=== PATIENT | male | born 1985 | race Caucasian/White ===

== ENCOUNTER 2017-02-25 02:28 | Emergency (ER) | payer OTHER ==
--- NOTE | 2017-02-25 02:54 | PDOC ---
History of Present Illness - General History Source: Patient <Nate Rivas - Last Filed: 02/25/17 03:00> - General History Source: Patient Exam Limitations: No Limitations - History of Present Illness Initial Comments: 02/25/17 04:07 The patient is a 31 year old [employer] male with no significant past medical history who presents to the ED with traumatic left shoulder pain prior to arrival. Patient reports around 10:30pm, as he was walking down a flight of stairs, he tripped and caught himself by reaching out with his left arm and grabbing the railing. He reports stretching sensation in his left shoulder. No numbness/ tingling. No radiation. 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 Patient reports some loss of shoulder strength. The patient denies fever, chills, cough, SOB, chest pain, and palpitations. The patient denies abdominal pain, nausea, vomiting, and diarrhea. <Yudith Castellano - Last Filed: 02/25/17 04:08> - General Chief Complaint: Pain Stated Complaint: SHOULDER PAIN Time Seen by Provider: 02/25/17 02:53 Past History - Immunization History Immunization Up to Date: Yes - Psycho/Social/Smoking Cessation Hx Suicidal Ideation: No Smoking History: Never smoked Have you smoked in the past 12 months: No Information on smoking cessation initiated: No Hx Alcohol Use: No Drug/Substance Use Hx: No Substance Use Type: None <Nate Rivas - Last Filed: 02/25/17 03:00> <Yudith Castellano - Last Filed: 02/25/17 04:08> - Past Medical History Allergies/Adverse Reactions: Allergies Allergy/AdvReac Type Severity Reaction Status Date / Time No Known Allergies Allergy Verified 02/25/17 02:50 Home Medications: Ambulatory Orders NK [No Known Home Medication] 02/25/17 Review of Systems - Review of Systems Able to Perform ROS?: Yes Comments:: 02/25/17 04:07 CONSTITUTIONAL: Absent: fever, no chills, no fatigue EYES: Absent: visual changes ENT: Absent: ear pain, no sore throat CARDIOVASCULAR: Absent: chest pain, no palpitations RESPIRATORY: Absent: cough, no SOB GI: Absent: abdominal pain, no nausea, no vomiting, no constipation, no diarrhea GENITOURINARY: Absent: dysuria, no frequency, no hematuria MUSCULOSKELETAL: +L shoulder pain Absent: back pain, no myalgia SKIN: Absent: rash NEURO: Absent: headache <AngelijaironYudith - Last Filed: 02/25/17 04:08> *Physical Exam - Vital Signs Last Vital Signs Temp Pulse Resp BP Pulse Ox 98.2 F 80 20 116/67 100 02/25/17 02:45 02/25/17 02:45 02/25/17 02:45 02/25/17 02:45 02/25/17 02:45 <Nate Rivas - Last Filed: 02/25/17 03:00> - Vital Signs Last Vital Signs Temp Pulse Resp BP Pulse Ox 98.2 F 80 20 116/67 100 02/25/17 02:45 02/25/17 02:45 02/25/17 02:45 02/25/17 02:45 02/25/17 02:45 - Physical Exam Comments: 02/25/17 04:07 GENERAL: Well-appearing, well-nourished. No apparent distress. HEENT: Normocephalic, atraumatic. PERRL, EOM intact. CARDIOVASCULAR: Normal S1, S2. Regular rate and rhythm. PULMONARY: Clear to auscultation bilaterally. ABDOMEN: Soft, non-distended, non-tender. EXTREMITIES: Normal ROM in all four extremities. No gross deformities. Shoulder abduction to 95 degrees. +claire. +empty can. Gross hand motion intact. No loss in sensations. Radial pulse 2/4. SKIN: Warm, dry. No rash NEUROLOGICAL: No focal neurological deficits. <Yudith Castellano - Last Filed: 02/25/17 04:08> ED Treatment Course - Medications Given in the ED: ED Medications Discontinued Medications Generic Name Dose Route Start Last Admin Trade Name Freq PRN Reason Stop Dose Admin Ibuprofen 800 mg 02/25/17 03:00 02/25/17 03:10 Motrin - PO 02/25/17 03:01 800 mg ONCE ONE Administration <AngelijaironYudith - Last Filed: 02/25/17 04:08> Medical Decision Making - Medical Decision Making 02/25/17 03:04 Dr. Rivas: The scribe's documentation has been prepared under my direction and personally reviewed by me in its entirery. I confirm that the note above accurately reflects all work, treatment, procedures, and medical decision making performed by me. <Nate Rivas - Last Filed: 02/25/17 03:00> *DC/Admit/Observation/Transfer - Discharge Dispostion Admit: No <Nate Rivas - Last Filed: 02/25/17 03:00> - Attestations Scribe Attestion: 02/25/17 04:08 Documentation prepared by Yudith Castellano, acting as medical unit secretary for Nate Rivas MD <Yudith Castellano - Last Filed: 02/25/17 04:08> Diagnosis at time of Disposition: Sprain of left shoulder Qualifiers: Encounter type: initial encounter Shoulder sprain type: unspecified sprain Qualified Code(s): S43.402A - Unspecified sprain of left shoulder joint, initial encounter - Discharge Dispostion Disposition: HOME Condition at time of disposition: Stable - Referrals Referrals: Osiel Thapa MD [Primary Care Provider] - Tristin Hardy MD [Staff Physician] - Ruben Dawson MD [Staff Physician] - - Patient Instructions Printed Discharge Instructions: DI for Shoulder Sprain
[2017-02-25] MEDS ORDERED: IBUPROFEN 400 MG TABLET (FP) PO ONE ×2 (03:00→03:09)
[2017-02-25 03:06] VITALS: BP 116/67; PULSE 80; TEMP 98.2; BMI 27.3
== END 2017-02-25 03:10 | disposition home or self-care (01) ==
LOC: JER 02:28
DX: S43.402A Unspecified sprain of left shoulder joint, initial encounter (principal); W10.8XXA Fall (on) (from) other stairs and steps, initial encounter; Y93.89 Activity, other specified; Y92.29 Other specified public building as the place of occurrence of the external cause; Y99.0 Civilian activity done for income or pay
CPT/HCPCS: 99282-25

== ENCOUNTER 2018-08-03 01:52 | Emergency (ER) | payer OTHER ==
[2018-08-03 02:02] VITALS: BP 126/80; PULSE 77; TEMP 98.2; BMI 27.3
--- NOTE | 2018-08-03 02:18 | PDOC ---
History of Present Illness - General Chief Complaint: Pain, Acute Stated Complaint: R KNEE INJURY/[employer] Time Seen by Provider: 08/03/18 02:03 History Source: Patient - History of Present Illness Initial Comments: 08/03/18 02:06 32 year [employer] male c/o right knee pain s/p missed step pain and swelling to right lateral knee. able to weightbear with difficulty. no pmhx Past History - Past Medical History Allergies/Adverse Reactions: Allergies Allergy/AdvReac Type Severity Reaction Status Date / Time No Known Allergies Allergy Verified 08/03/18 02:00 Home Medications: Ambulatory Orders NK [No Known Home Medication] 02/25/17 COPD: No - Immunization History Immunization Up to Date: Yes - Suicide/Smoking/Psychosocial Hx Smoking History: Never smoked Have you smoked in the past 12 months: No Information on smoking cessation initiated: No Hx Alcohol Use: No Drug/Substance Use Hx: No Substance Use Type: None Review of Systems - Review of Systems Able to Perform ROS?: Yes Is the patient limited German proficient: No Musculoskeletal: Yes: Other (knee pain) *Physical Exam - Vital Signs Last Vital Signs Temp Pulse Resp BP Pulse Ox 98.2 F 77 20 126/80 98 08/03/18 02:00 08/03/18 02:00 08/03/18 02:00 08/03/18 02:00 08/03/18 02:00 - Physical Exam General Appearance: Yes: Appropriately Dressed Extremity: positive: Normal Capillary Refill, Other (able to leg raise lateral knee tenderness and swelling. ) Integumentary: positive: Normal Color, Dry, Warm Neurologic: positive: Fully Oriented, Alert, Normal Mood/Affect Progress Note - Progress Note Progress Note: A: knee pain P: xray *DC/Admit/Observation/Transfer - Referrals Referrals: Osiel Thapa MD [Primary Care Provider] - - Patient Instructions - Post Discharge Activity
--- NOTE | 2018-08-03 02:20 | PDOC ---
History of Present Illness - General Chief Complaint: Pain, Acute Stated Complaint: R KNEE INJURY/[employer] Time Seen by Provider: 08/03/18 02:03 History Source: Patient Exam Limitations: No Limitations - History of Present Illness Initial Comments: 08/03/18 02:15 Patient is a 32M with no significant medical history here today complaining of knee pain that started today. Patient states that he was going down the stairs when he twisted his knee. Patient states that he was able to walk, but was leaning more on his other leg. Denies fevers, chills, nausea, vomiting. Denies other trauma. Denies feeling of joint instability. Past History - Past Medical History Allergies/Adverse Reactions: Allergies Allergy/AdvReac Type Severity Reaction Status Date / Time No Known Allergies Allergy Verified 08/03/18 02:00 Home Medications: Ambulatory Orders NK [No Known Home Medication] 02/25/17 COPD: No - Immunization History Immunization Up to Date: Yes - Suicide/Smoking/Psychosocial Hx Smoking History: Never smoked Have you smoked in the past 12 months: No Information on smoking cessation initiated: No Hx Alcohol Use: No Drug/Substance Use Hx: No Substance Use Type: None Review of Systems - Review of Systems Comments:: 08/03/18 02:17 GENERAL/CONSTITUTIONAL: No fever or chills. No weakness. HEAD, EYES, EARS, NOSE AND THROAT: No change in vision. No sore throat. CARDIOVASCULAR: No chest pain or shortness of breath RESPIRATORY: No cough, wheezing, or hemoptysis. GASTROINTESTINAL: No nausea, vomiting, diarrhea or constipation. MUSCULOSKELETAL: +right knee pain, No neck or back pain. SKIN: No rash NEUROLOGIC: No headache, vertigo, loss of consciousness, or change in strength/ sensation. ALLERGIC/IMMUNOLOGIC: No hives or skin allergy. *Physical Exam - Vital Signs Last Vital Signs Temp Pulse Resp BP Pulse Ox 98.2 F 77 20 126/80 98 08/03/18 02:00 08/03/18 02:00 08/03/18 02:00 08/03/18 02:00 08/03/18 02:00 - Physical Exam Comments: 08/03/18 02:17 GENERAL: Awake, alert, and fully oriented, in no acute distress R KNEE: tender along medial aspect of joint, stable to drawer test, +delores sign HEAD: No signs of trauma, normocephalic, atraumatic EYES: PERRLA, EOMI, sclera anicteric, conjunctiva clear ENT: Auricles normal inspection, hearing grossly normal, nares patent, oropharynx clear without exudates. Moist mucosa NECK: Normal ROM, supple, no lymphadenopathy, JVD, or masses LUNGS: No distress, speaks full sentences, clear to auscultation bilaterally HEART: Regular rate and rhythm, normal S1 and S2, no murmurs, rubs or gallops, peripheral pulses normal and equal bilaterally. ABDOMEN: Soft, nontender, normoactive bowel sounds. No guarding, no rebound. No masses NEUROLOGICAL: Cranial nerves II through XII grossly intact. Normal speech, normal gait, no focal sensorimotor deficits SKIN: Warm, Dry, normal turgor, no rashes or lesions noted. Medical Decision Making - Medical Decision Making 08/03/18 02:20 Patient is a 32M here today with knee pain. Stable joint, no suspicion of fracture. Will give brace, d/c home with ortho follow up. *DC/Admit/Observation/Transfer Diagnosis at time of Disposition: Knee pain - Discharge Dispostion Disposition: HOME Condition at time of disposition: Good Decision to Admit order: No - Referrals Referrals: Osiel Thapa MD [Primary Care Provider] - Jr Naidu MD [Staff Physician] - - Patient Instructions Printed Discharge Instructions: DI for Knee Pain Additional Instructions: Please follow up with orthopedic surgeon. The number is in your paperwork below. - Post Discharge Activity Forms/Work/School Notes: Back to Work
--- NOTE | 2018-08-03 02:22 | PDOC ---
Attending Attestation - HPI HPI: 08/03/18 02:26 The patient is a 33 year old male, with no significant past medical history, who presents to the emergency department with, right knee pain. As per patient , he was walking down stairs when he twisted his knee. He reports ambulating s/ p injury with minimal impairments. He reports putting more weight on the left knee. He denies any recent fevers, chills, headache or dizziness. He denies any recent nausea, vomit, diarrhea or constipation. He denies any recent chest pain or shortness of breath. He denies any recent dysuria, frequency, urgency or hematuria. Allergies: NKA Primary Care Physician: Dr. Thapa - Physicial Exam PE: 08/03/18 02:26 Refer to resident exam. <Madhavi Li - Last Filed: 08/03/18 02:26> - Resident Resident Name: Jorge Reagan - ED Attending Attestation I have performed the following: I have examined & evaluated the patient, The case was reviewed & discussed with the resident, I agree w/resident's findings & plan, Exceptions are as noted - Medical Decision Making Knee pain while walking downstairs. No evidence of fracture, dislocation. pt reports a feeling of instability that make me concerned about ligamentous injury X-ray not indicated. Will discharged home. Patient follow with Ortho/primary care physician Return to the ER for any other concerns or complaints <Rachael Deleon - Last Filed: 08/04/18 00:49> Attestations - Attestations 08/03/18 02:26 Documentation prepared by Madhavi Li, acting as biomedical equipment tech for Rachael Deleon MD. <Madhavi Li - Last Filed: 08/03/18 02:26>
[2018-08-03] MEDS ORDERED: IBUPROFEN 600 MG TABLET (FP) PO ONE ×2 (02:29→02:30)
== END 2018-08-03 02:31 | disposition home or self-care (01) ==
LOC: JER 01:52
DX: M25.561 Pain in right knee (principal); X58.XXXA Exposure to other specified factors, initial encounter; Y93.89 Activity, other specified; Y92.89 Other specified places as the place of occurrence of the external cause; Y99.0 Civilian activity done for income or pay
CPT/HCPCS: 99282-25

== ENCOUNTER 2019-05-22 23:54 | Emergency (ER) | payer OTHER ==
[2019-05-23 00:16] VITALS: BP 120/62; TEMP 98.3; BMI 26.6
--- NOTE | 2019-05-23 00:59 | PDOC ---
History of Present Illness - General Chief Complaint: Injury Stated Complaint: INJURY-[employer] Time Seen by Provider: 05/23/19 00:52 History Source: Patient - History of Present Illness Initial Comments: 05/23/19 00:54 33-year-old [employer] male complaining of left calf pain after tripping and missing a step while walking while at work. Pain is worse with movement. Patient reports that similar calf injury/strain in the past required physical therapy patient is noted to have slight left calf swelling. Positive pedal pulse no swelling to lower extremity. No past medical history Past History - Past Medical History Allergies/Adverse Reactions: Allergies Allergy/AdvReac Type Severity Reaction Status Date / Time No Known Allergies Allergy Verified 05/23/19 00:16 Home Medications: Ambulatory Orders NK [No Known Home Medication] 02/25/17 COPD: No - Immunization History Immunization Up to Date: Yes - Suicide/Smoking/Psychosocial Hx Smoking History: Unknown if ever smoked Have you smoked in the past 12 months: No Hx Alcohol Use: No Drug/Substance Use Hx: No Substance Use Type: None Review of Systems - Review of Systems Able to Perform ROS?: Yes Is the patient limited Nepalese proficient: No HEENTM: No: Symptoms Reported, See HPI, Eye Pain, Blurred Vision, Tearing, Recent change in vision, Double Vision, Cataracts, Ear Pain, Ocular Prothesis, Ear Discharge, Nose Pain, Nose Congestion, Tinnitus, Nose Bleeding, Hearing Loss , Throat Pain, Throat Swelling, Mouth Pain, Dental Problems, Difficulty Swallowing, Mouth Swelling, Other Respiratory: No: Symptoms reported, See HPI, Cough, Orthopnea, Shortness of Breath, SOB with Exertion, SOB at Rest, Stridor, Wheezing, Productive cough, Hemoptysis, Other *Physical Exam - Vital Signs Last Vital Signs Temp Pulse Resp BP Pulse Ox 98.3 F 90 H 120/62 96 05/23/19 00:12 05/23/19 00:12 05/23/19 00:12 05/23/19 00:12 - Physical Exam General Appearance: Yes: Appropriately Dressed Respiratory/Chest: positive: Lungs Clear, Normal Breath Sounds Extremity: positive: Normal Capillary Refill, Normal Inspection, Normal Range of Motion, Other (left calf swelling and tenderness. no pedal edema. Positive pedal pulse) Integumentary: positive: Normal Color, Dry, Warm Neurologic: positive: Fully Oriented, Alert, Normal Mood/Affect Medical Decision Making - Medical Decision Making 05/23/19 00:57 A: calf strain P: compression applied advised to elevated and rest/ outpatient PM&R follow up as previous injury *DC/Admit/Observation/Transfer Diagnosis at time of Disposition: Strain of calf muscle Qualifiers: Encounter type: initial encounter Laterality: left Qualified Code(s): S86.812A - Strain of other muscle(s) and tendon(s) at lower leg level, left leg, initial encounter - Discharge Dispostion Disposition: HOME - Referrals Referrals: Osiel Thapa MD [Primary Care Provider] - - Patient Instructions Additional Instructions: Elevate extremity. Continue the compression to the calf Follow-up with your doctor as soon as possible or occupational health as soon as possible Return to the emergency room for any worsening symptoms. - Post Discharge Activity Forms/Work/School Notes: Back to Work
[2019-05-23 04:59] VITALS: PULSE 90
== END 2019-05-23 01:13 | disposition home or self-care (01) ==
LOC: JER 23:54
DX: S86.112A Strain of other muscle(s) and tendon(s) of posterior muscle group at lower leg level, left leg, initial encounter (principal); W10.8XXA Fall (on) (from) other stairs and steps, initial encounter; Y93.89 Activity, other specified; Y92.89 Other specified places as the place of occurrence of the external cause; Y99.0 Civilian activity done for income or pay
CPT/HCPCS: 99281-25

== ENCOUNTER 2022-12-07 00:20 | Emergency (ER) | payer OTHER ==
[2022-12-07 00:25] VITALS: BP 122/83; PULSE 79; RESP 16; TEMP 99.7; BMI 26.6
[2022-12-07] MEDS ORDERED: NAPROXEN 500 MG TABLET PO ONE (00:30)
[2022-12-07] MEDS ORDERED: METHOCARBAMOL 750 MG TAB PO STA (00:30)
[2022-12-07] MEDS ORDERED: NAPROXEN 500 MG TABLET ONE (00:33)
[2022-12-07] MEDS ORDERED: METHOCARBAMOL 500 MG TABLET ONE (00:33)
[2022-12-07] MEDS ORDERED: METHOCARBAMOL 500 MG TABLET PO ONE (00:36)
== END 2022-12-07 00:40 | disposition home or self-care (01) ==
LOC: FER 00:20
DX: M54.6 Pain in thoracic spine (principal)
CPT/HCPCS: 99283-25

== ENCOUNTER 2023-11-22 10:18 | Emergency (ER) | payer OTHER ==
[2023-11-22 10:32] VITALS: BP 116/70; PULSE 71; RESP 16; TEMP 98.5; BMI 26.6
== END 2023-11-22 11:25 | disposition home or self-care (01) ==
LOC: FER 10:18
DX: S59.911A Unspecified injury of right forearm, initial encounter (principal); M79.631 Pain in right forearm; R22.31 Localized swelling, mass and lump, right upper limb; W50.0XXA Accidental hit or strike by another person, initial encounter; Y93.72 Activity, wrestling
CPT/HCPCS: 73090-TC-RT-FY; 99283-25